=== PATIENT | male | born 1980 | race Caucasian/White ===

== ENCOUNTER → 2018-09-16 | Outpatient (CLI) | payer OTHER ==
--- NOTE | 2018-09-16 17:15 | KCIC ---
Bilateral foot pain, 09/16/2018: HISTORY: Plantar fasciitis No fracture or dislocation is identified. No significant arthritic change is seen. There are small bilateral inferior calcaneal spurs. There is mild subcutaneous edema. IMPRESSION: no acute bony abnormality is detected. Electronically signed by: James Atkins MD (09/16/2018 5:12 PM) [facility]
== END | disposition home or self-care (01) ==
LOC: KCIC 14:21
PROVIDERS: ATTEND Family Medicine
DX: M77.32 Calcaneal spur, left foot (principal); M77.31 Calcaneal spur, right foot; M72.2 Plantar fascial fibromatosis
CPT/HCPCS: 73630